=== PATIENT | male | born 1960 | race Caucasian/White ===

== ENCOUNTER → 2023-05-28 10:46 | Outpatient (CLI) | payer MEDICARE, OTHER, SELFPAY | LOC: WC 10:54 | PROVIDERS: Referring Provider Podiatrist; Visit Provider Surgery | DX: E11.621 Type 2 diabetes mellitus with foot ulcer (principal); E11.42 Type 2 diabetes mellitus with diabetic polyneuropathy; L97.526 Non-pressure chronic ulcer of other part of left foot with bone involvement without evidence of necrosis; I96 Gangrene, not elsewhere classified; I73.9 Peripheral vascular disease, unspecified; N18.9 Chronic kidney disease, unspecified; R60.0 Localized edema; L53.9 Erythematous condition, unspecified; I50.9 Heart failure, unspecified; I25.10 Atherosclerotic heart disease of native coronary artery without angina pectoris; Z87.891 Personal history of nicotine dependence | CPT/HCPCS: 11043; 87070; 87075; 87077; 87186; 87205; 99204; 99214 ==

== ENCOUNTER → 2023-06-09 17:24 | Outpatient (CLI) | payer MEDICARE, OTHER, SELFPAY ==
--- NOTE | 2023-06-09 17:28 | DI.RAD.S_ITS ---
PROCEDURE: XR CHEST 2V INDICATIONS: evaluate for HBO treatment TECHNIQUE: 2 views of the chest were acquired. COMPARISON: None. FINDINGS: Surgical changes and devices: None. Lungs and pleura: Lungs are clear. No pleural effusions or pneumothorax. Mediastinum: Mediastinal contours are normal. Heart size is top normal. Bones and chest wall: Degenerative disc disease of the thoracic spine seen on the lateral view. No suspicious bony abnormalities. Soft tissues appear unremarkable. IMPRESSION: No acute cardiopulmonary abnormality is seen. Dictated by: Alfredo English M.D. on 06/10/2023 at 9:01 Approved by: Alfredo English M.D. on 06/10/2023 at 9:04
== END ==
PROVIDERS: PCP Student in an Organized Health Care Education/Training Program; Referring Provider Surgery; Visit Provider Surgery
DX: E11.621 Type 2 diabetes mellitus with foot ulcer (principal); M51.34 Other intervertebral disc degeneration, thoracic region
CPT/HCPCS: 71046

== ENCOUNTER → 2023-06-10 13:05 | Outpatient (CLI) | payer MEDICARE, OTHER, SELFPAY | LOC: WC 13:06 | PROVIDERS: PCP Student in an Organized Health Care Education/Training Program; Referring Provider Podiatrist; Visit Provider Surgery | DX: L97.524 Non-pressure chronic ulcer of other part of left foot with necrosis of bone (principal); I73.9 Peripheral vascular disease, unspecified; E11.621 Type 2 diabetes mellitus with foot ulcer; E11.42 Type 2 diabetes mellitus with diabetic polyneuropathy | CPT/HCPCS: 99183; G0277 ==

== ENCOUNTER → 2023-06-11 13:12 | Outpatient (CLI) | payer MEDICARE, OTHER, SELFPAY | LOC: WC 13:13 | PROVIDERS: PCP Student in an Organized Health Care Education/Training Program; Referring Provider Podiatrist; Visit Provider Surgery | DX: L97.524 Non-pressure chronic ulcer of other part of left foot with necrosis of bone (principal); I73.9 Peripheral vascular disease, unspecified; E11.621 Type 2 diabetes mellitus with foot ulcer; E11.42 Type 2 diabetes mellitus with diabetic polyneuropathy | CPT/HCPCS: 99183; G0277 ==

== ENCOUNTER → 2023-06-12 09:11 | Outpatient (CLI) | payer MEDICARE, OTHER, SELFPAY | LOC: WC 09:13 | PROVIDERS: PCP Student in an Organized Health Care Education/Training Program; Referring Provider Student in an Organized Health Care Education/Training Program; Visit Provider Physician Assistant | DX: L97.524 Non-pressure chronic ulcer of other part of left foot with necrosis of bone (principal); I73.9 Peripheral vascular disease, unspecified; E11.621 Type 2 diabetes mellitus with foot ulcer; E11.42 Type 2 diabetes mellitus with diabetic polyneuropathy | CPT/HCPCS: 99183; G0277 ==

== ENCOUNTER → 2023-06-15 08:53 | Outpatient (CLI) | payer MEDICARE, OTHER, SELFPAY | LOC: WC 06-17 11:15 | PROVIDERS: PCP Student in an Organized Health Care Education/Training Program; Referring Provider Podiatrist; Visit Provider Surgery | DX: L97.524 Non-pressure chronic ulcer of other part of left foot with necrosis of bone (principal); I73.9 Peripheral vascular disease, unspecified; E11.621 Type 2 diabetes mellitus with foot ulcer; E11.42 Type 2 diabetes mellitus with diabetic polyneuropathy | CPT/HCPCS: 99183; G0277 ==

== ENCOUNTER → 2023-06-16 13:35 | Outpatient (CLI) | payer MEDICARE, OTHER, SELFPAY | LOC: WC 13:36 | PROVIDERS: PCP Student in an Organized Health Care Education/Training Program; Referring Provider Podiatrist; Visit Provider Surgery | DX: L97.524 Non-pressure chronic ulcer of other part of left foot with necrosis of bone (principal); I73.9 Peripheral vascular disease, unspecified; E11.621 Type 2 diabetes mellitus with foot ulcer; E11.42 Type 2 diabetes mellitus with diabetic polyneuropathy | CPT/HCPCS: 99183; G0277 ==

== ENCOUNTER → 2023-06-17 09:03 | Outpatient (CLI) | payer MEDICARE, OTHER, SELFPAY | LOC: WC 09:04 | PROVIDERS: PCP Student in an Organized Health Care Education/Training Program; Referring Provider Podiatrist; Visit Provider Surgery | DX: L97.524 Non-pressure chronic ulcer of other part of left foot with necrosis of bone (principal); I73.9 Peripheral vascular disease, unspecified; E11.621 Type 2 diabetes mellitus with foot ulcer; E11.42 Type 2 diabetes mellitus with diabetic polyneuropathy | CPT/HCPCS: 99183; G0277 ==

== ENCOUNTER → 2023-06-18 10:33 | Outpatient (CLI) | payer MEDICARE, OTHER, SELFPAY | LOC: WC 10:34 | PROVIDERS: PCP Student in an Organized Health Care Education/Training Program; Referring Provider Podiatrist; Visit Provider Surgery | DX: L97.524 Non-pressure chronic ulcer of other part of left foot with necrosis of bone (principal); I73.9 Peripheral vascular disease, unspecified; E11.621 Type 2 diabetes mellitus with foot ulcer; E11.42 Type 2 diabetes mellitus with diabetic polyneuropathy | CPT/HCPCS: 99183; G0277 ==

== ENCOUNTER → 2023-06-19 14:18 | Outpatient (CLI) | payer MEDICARE, OTHER, SELFPAY | PROVIDERS: PCP Student in an Organized Health Care Education/Training Program; Referring Provider Podiatrist; Visit Provider Physician Assistant | DX: L97.524 Non-pressure chronic ulcer of other part of left foot with necrosis of bone (principal); I73.9 Peripheral vascular disease, unspecified; E11.621 Type 2 diabetes mellitus with foot ulcer; E11.42 Type 2 diabetes mellitus with diabetic polyneuropathy | CPT/HCPCS: 99183; G0277 ==

== ENCOUNTER → 2023-06-22 11:06 | Outpatient (CLI) | payer MEDICARE, OTHER, SELFPAY | LOC: WC 11:07 | PROVIDERS: PCP Student in an Organized Health Care Education/Training Program; Referring Provider Podiatrist; Visit Provider Surgery | DX: L97.524 Non-pressure chronic ulcer of other part of left foot with necrosis of bone (principal); I73.9 Peripheral vascular disease, unspecified; E11.621 Type 2 diabetes mellitus with foot ulcer; E11.42 Type 2 diabetes mellitus with diabetic polyneuropathy | CPT/HCPCS: 99183; G0277 ==

== ENCOUNTER → 2023-06-23 11:07 | Outpatient (CLI) | payer MEDICARE, OTHER, SELFPAY | LOC: WC 11:08 | PROVIDERS: PCP Student in an Organized Health Care Education/Training Program; Referring Provider Podiatrist; Visit Provider Surgery | DX: L97.524 Non-pressure chronic ulcer of other part of left foot with necrosis of bone (principal); I73.9 Peripheral vascular disease, unspecified; E11.621 Type 2 diabetes mellitus with foot ulcer; E11.42 Type 2 diabetes mellitus with diabetic polyneuropathy | CPT/HCPCS: 99183; G0277 ==

== ENCOUNTER → 2023-06-24 10:48 | Outpatient (CLI) | payer MEDICARE, OTHER, SELFPAY | LOC: WC 10:49 | PROVIDERS: PCP Student in an Organized Health Care Education/Training Program; Referring Provider Podiatrist; Visit Provider Surgery | DX: L97.524 Non-pressure chronic ulcer of other part of left foot with necrosis of bone (principal); I73.9 Peripheral vascular disease, unspecified; E11.621 Type 2 diabetes mellitus with foot ulcer; E11.42 Type 2 diabetes mellitus with diabetic polyneuropathy | CPT/HCPCS: 99183; G0277 ==

== ENCOUNTER → 2023-06-25 14:13 | Outpatient (CLI) | payer MEDICARE, OTHER, SELFPAY | LOC: WC 14:14 | PROVIDERS: PCP Student in an Organized Health Care Education/Training Program; Referring Provider Podiatrist; Visit Provider Surgery | DX: L97.524 Non-pressure chronic ulcer of other part of left foot with necrosis of bone (principal); I73.9 Peripheral vascular disease, unspecified; E11.621 Type 2 diabetes mellitus with foot ulcer; E11.42 Type 2 diabetes mellitus with diabetic polyneuropathy | CPT/HCPCS: 99183; G0277 ==

== ENCOUNTER → 2023-06-29 07:56 | Outpatient (CLI) | payer MEDICARE, OTHER, SELFPAY ==
--- NOTE | 2023-06-29 07:58 | DI.US.S_ITS ---
PROCEDURE: US CAROTID DOPPLER BI INDICATIONS: RIGHT CENTRAL RETINAL ARTERY OCCLUSION TECHNIQUE: Color and pulse Doppler interrogation was performed of both carotid systems, with image documentation and velocity measurements. COMPARISON: None. FINDINGS: Stenosis calculations are based on SRU (S[employer] in Ultras[employer]) criteria. Right side: Brachial blood pressure: 155/95 mm Hg. Common carotid artery peak systolic velocity: 41 cm/sec. Internal carotid artery peak systolic velocity: 42 cm/sec. Internal carotid artery end diastolic velocity: 21 cm/sec. External carotid artery peak systolic velocity: 47 cm/sec. ICA/CCA peak systolic ratio: 1.0. Rain scale imaging description: Mild calcified plaque. Percent internal carotid artery stenosis: Less than 50% stenosis. Vertebral artery: Flow direction is antegrade. Left side: Brachial blood pressure: 158/101 mm Hg. Common carotid artery peak systolic velocity: 63 cm/sec. Internal carotid artery peak systolic velocity: 44 cm/sec. Internal carotid artery end diastolic velocity: 19 cm/sec. External carotid artery peak systolic velocity: 49 cm/sec. ICA/CCA peak systolic ratio: 0.7. Rain scale imaging description: Mild calcified plaque. Percent internal carotid artery stenosis: Less than 50% stenosis. Vertebral artery: Flow direction is antegrade. IMPRESSION: 1. Right ICA: Less than 50 % stenosis. 2. Left ICA: Less than 50 % stenosis. 3. Antegrade flow in the bilateral vertebral arteries. Dictated by: Rudy Morris M.D. on 06/29/2023 at 8:58 Approved by: Rudy Morris M.D. on 06/29/2023 at 9:02
== END ==
PROVIDERS: PCP Student in an Organized Health Care Education/Training Program; Referring Provider Ophthalmology; Visit Provider Ophthalmology
DX: H34.11 Central retinal artery occlusion, right eye (principal); I65.23 Occlusion and stenosis of bilateral carotid arteries
CPT/HCPCS: 93880; G0277

== ENCOUNTER → 2023-06-29 09:32 | Outpatient (CLI) | payer MEDICARE, OTHER, SELFPAY | PROVIDERS: PCP Student in an Organized Health Care Education/Training Program; Referring Provider Student in an Organized Health Care Education/Training Program; Visit Provider Surgery | DX: L97.524 Non-pressure chronic ulcer of other part of left foot with necrosis of bone (principal); I73.9 Peripheral vascular disease, unspecified; E11.621 Type 2 diabetes mellitus with foot ulcer; E11.42 Type 2 diabetes mellitus with diabetic polyneuropathy | CPT/HCPCS: 99183; G0277 ==

== ENCOUNTER → 2023-06-30 11:28 | Outpatient (CLI) | payer MEDICARE, OTHER, SELFPAY | LOC: WC 11:29 | PROVIDERS: PCP Student in an Organized Health Care Education/Training Program; Referring Provider Podiatrist; Visit Provider Surgery | DX: L97.524 Non-pressure chronic ulcer of other part of left foot with necrosis of bone (principal); I73.9 Peripheral vascular disease, unspecified; E11.621 Type 2 diabetes mellitus with foot ulcer; E11.42 Type 2 diabetes mellitus with diabetic polyneuropathy | CPT/HCPCS: 99183; G0277 ==

== ENCOUNTER → 2023-07-01 10:46 | Outpatient (CLI) | payer MEDICARE, OTHER, SELFPAY | LOC: WC 10:47 | PROVIDERS: PCP Student in an Organized Health Care Education/Training Program; Referring Provider Podiatrist; Visit Provider Surgery | DX: L97.524 Non-pressure chronic ulcer of other part of left foot with necrosis of bone (principal); I73.9 Peripheral vascular disease, unspecified; E11.621 Type 2 diabetes mellitus with foot ulcer; E11.42 Type 2 diabetes mellitus with diabetic polyneuropathy; L97.526 Non-pressure chronic ulcer of other part of left foot with bone involvement without evidence of necrosis; I96 Gangrene, not elsewhere classified; R60.0 Localized edema; L53.9 Erythematous condition, unspecified; I50.9 Heart failure, unspecified; I25.10 Atherosclerotic heart disease of native coronary artery without angina pectoris; N18.9 Chronic kidney disease, unspecified | CPT/HCPCS: 11042; 99183; 99213; G0277 ==

== ENCOUNTER → 2023-07-02 13:02 | Outpatient (CLI) | payer MEDICARE, OTHER, SELFPAY | PROVIDERS: PCP Student in an Organized Health Care Education/Training Program; Referring Provider Podiatrist; Visit Provider Surgery | DX: L97.524 Non-pressure chronic ulcer of other part of left foot with necrosis of bone (principal); I73.9 Peripheral vascular disease, unspecified; E11.621 Type 2 diabetes mellitus with foot ulcer; E11.42 Type 2 diabetes mellitus with diabetic polyneuropathy | CPT/HCPCS: 99183; G0277 ==

== ENCOUNTER → 2023-07-03 13:19 | Outpatient (CLI) | payer MEDICARE, OTHER, SELFPAY | PROVIDERS: PCP Student in an Organized Health Care Education/Training Program; Referring Provider Podiatrist; Visit Provider Physician Assistant | DX: L97.524 Non-pressure chronic ulcer of other part of left foot with necrosis of bone (principal); I73.9 Peripheral vascular disease, unspecified; E11.621 Type 2 diabetes mellitus with foot ulcer; E11.42 Type 2 diabetes mellitus with diabetic polyneuropathy | CPT/HCPCS: 99183; G0277 ==

== ENCOUNTER → 2023-07-06 14:20 | Outpatient (CLI) | payer MEDICARE, OTHER, SELFPAY | PROVIDERS: PCP Student in an Organized Health Care Education/Training Program; Referring Provider Podiatrist; Visit Provider Surgery | DX: L97.524 Non-pressure chronic ulcer of other part of left foot with necrosis of bone (principal); I73.9 Peripheral vascular disease, unspecified; E11.621 Type 2 diabetes mellitus with foot ulcer; E11.42 Type 2 diabetes mellitus with diabetic polyneuropathy | CPT/HCPCS: 99183; G0277 ==

== ENCOUNTER → 2023-07-07 09:38 | Outpatient (CLI) | payer MEDICARE, OTHER, SELFPAY | PROVIDERS: PCP Student in an Organized Health Care Education/Training Program; Referring Provider Podiatrist; Visit Provider Surgery | DX: L97.524 Non-pressure chronic ulcer of other part of left foot with necrosis of bone (principal); I73.9 Peripheral vascular disease, unspecified; E11.621 Type 2 diabetes mellitus with foot ulcer; E11.42 Type 2 diabetes mellitus with diabetic polyneuropathy | CPT/HCPCS: 99183; G0277 ==

== ENCOUNTER → 2023-07-08 11:45 | Outpatient (CLI) | payer MEDICARE, OTHER, SELFPAY | LOC: WC 11:45 | PROVIDERS: PCP Student in an Organized Health Care Education/Training Program; Referring Provider Podiatrist; Visit Provider Surgery | DX: L97.524 Non-pressure chronic ulcer of other part of left foot with necrosis of bone (principal); I73.9 Peripheral vascular disease, unspecified; E11.621 Type 2 diabetes mellitus with foot ulcer; E11.42 Type 2 diabetes mellitus with diabetic polyneuropathy | CPT/HCPCS: 99183; G0277 ==

== ENCOUNTER → 2023-07-09 15:11 | Outpatient (CLI) | payer MEDICARE, OTHER, SELFPAY | LOC: WC 15:12 | PROVIDERS: PCP Student in an Organized Health Care Education/Training Program; Referring Provider Podiatrist; Visit Provider Surgery | DX: L97.524 Non-pressure chronic ulcer of other part of left foot with necrosis of bone (principal); I73.9 Peripheral vascular disease, unspecified; E11.621 Type 2 diabetes mellitus with foot ulcer; E11.42 Type 2 diabetes mellitus with diabetic polyneuropathy | CPT/HCPCS: 99183; G0277 ==

== ENCOUNTER → 2023-07-10 11:48 | Outpatient (CLI) | payer MEDICARE, OTHER, SELFPAY | LOC: WC 11:49 | PROVIDERS: PCP Student in an Organized Health Care Education/Training Program; Referring Provider Podiatrist; Visit Provider Physician Assistant | DX: L97.524 Non-pressure chronic ulcer of other part of left foot with necrosis of bone (principal); I73.9 Peripheral vascular disease, unspecified; E11.621 Type 2 diabetes mellitus with foot ulcer; E11.42 Type 2 diabetes mellitus with diabetic polyneuropathy | CPT/HCPCS: 99183; G0277 ==

== ENCOUNTER → 2023-07-13 15:06 | Outpatient (CLI) | payer MEDICARE, OTHER, SELFPAY | LOC: WC 15:12 | PROVIDERS: PCP Student in an Organized Health Care Education/Training Program; Referring Provider Podiatrist; Visit Provider Surgery | DX: L97.524 Non-pressure chronic ulcer of other part of left foot with necrosis of bone (principal); I73.9 Peripheral vascular disease, unspecified; E11.621 Type 2 diabetes mellitus with foot ulcer; E11.42 Type 2 diabetes mellitus with diabetic polyneuropathy | CPT/HCPCS: 99183; G0277 ==

== ENCOUNTER → 2023-07-14 07:55 | Outpatient (CLI) | payer MEDICARE, OTHER, SELFPAY ==
--- NOTE | 2023-07-14 07:57 | DI.US.S_ITS ---
PROCEDURE: US ABDOMEN COMPLETE INDICATIONS: SPLENOMEGALY TECHNIQUE: Real-time scanning was performed of the abdominal and retroperitoneal organs, with image documentation. COMPARISON: None. FINDINGS: Evaluation is limited secondary to patient body habitus/bowel gas. Liver: Liver is normal in size and homogeneous in echotexture. Gallbladder: No gallstones identified. Normal gallbladder wall. No pericholecystic fluid. Negative sonographic Mcnamara sign. Biliary ducts: Intrahepatic bile ducts are non-dilated. Extrahepatic bile duct caliber measures 2 mm. Normal is 6-7 mm or less in diameter, or 10 mm or less post-cholecystectomy. Pancreas: Not well seen secondary to bowel gas. Spleen: Spleen is normal in size and homogeneous in echotexture. Kidneys: Kidneys are normal in size and echotexture. Right kidney measures 10.3 cm long; left kidney measures 11.3 cm long. No hydronephrosis or nephrolithiasis. No solid masses. Aorta: Proximal abdominal aorta measures 2.3 cm. Mid and distal abdominal aorta are not visualized. Iliacs: Not visualized. IVC: Intrahepatic inferior vena cava is patent. Miscellaneous: No free abdominal fluid. IMPRESSION: Evaluation is limited secondary to patient body habitus/bowel gas. Spleen is normal in size measuring 8.9 cm with homogeneous echotexture. Dictated by: Mo Ramirez M.D. on 07/14/2023 at 8:56 Approved by: Mo Ramirez M.D. on 07/14/2023 at 9:14
== END ==
PROVIDERS: PCP Student in an Organized Health Care Education/Training Program; Referring Provider Specialist; Visit Provider Specialist
DX: R16.1 Splenomegaly, not elsewhere classified (principal); Z90.49 Acquired absence of other specified parts of digestive tract
CPT/HCPCS: 76700

== ENCOUNTER → 2023-07-14 13:21 | Outpatient (CLI) | payer MEDICARE, OTHER, SELFPAY | PROVIDERS: PCP Student in an Organized Health Care Education/Training Program; Referring Provider Podiatrist; Visit Provider Surgery | DX: L97.524 Non-pressure chronic ulcer of other part of left foot with necrosis of bone (principal); I73.9 Peripheral vascular disease, unspecified; E11.621 Type 2 diabetes mellitus with foot ulcer; E11.42 Type 2 diabetes mellitus with diabetic polyneuropathy | CPT/HCPCS: 99183; G0277 ==

== ENCOUNTER → 2023-07-15 11:41 | Outpatient (CLI) | payer MEDICARE, OTHER, SELFPAY | LOC: WC 11:42 | PROVIDERS: PCP Student in an Organized Health Care Education/Training Program; Referring Provider Podiatrist; Visit Provider Surgery | DX: L97.524 Non-pressure chronic ulcer of other part of left foot with necrosis of bone (principal); I73.9 Peripheral vascular disease, unspecified; E11.621 Type 2 diabetes mellitus with foot ulcer; E11.42 Type 2 diabetes mellitus with diabetic polyneuropathy | CPT/HCPCS: 99183; G0277 ==

== ENCOUNTER → 2023-07-16 11:13 | Outpatient (CLI) | payer MEDICARE, OTHER, SELFPAY | LOC: WC 11:14 | PROVIDERS: PCP Student in an Organized Health Care Education/Training Program; Referring Provider Podiatrist; Visit Provider Surgery | DX: L97.524 Non-pressure chronic ulcer of other part of left foot with necrosis of bone (principal); I73.9 Peripheral vascular disease, unspecified; E11.621 Type 2 diabetes mellitus with foot ulcer; E11.42 Type 2 diabetes mellitus with diabetic polyneuropathy | CPT/HCPCS: 99183; G0277 ==

== ENCOUNTER → 2023-07-17 11:26 | Outpatient (CLI) | payer MEDICARE, OTHER, SELFPAY | LOC: WC 11:27 | PROVIDERS: PCP Student in an Organized Health Care Education/Training Program; Referring Provider Podiatrist; Visit Provider Surgery | DX: L97.524 Non-pressure chronic ulcer of other part of left foot with necrosis of bone (principal); I73.9 Peripheral vascular disease, unspecified; E11.621 Type 2 diabetes mellitus with foot ulcer; E11.42 Type 2 diabetes mellitus with diabetic polyneuropathy | CPT/HCPCS: 99183; G0277 ==

== ENCOUNTER → 2023-07-20 12:51 | Outpatient (CLI) | payer MEDICARE, OTHER, SELFPAY | LOC: WC 12:52 | PROVIDERS: PCP Student in an Organized Health Care Education/Training Program; Referring Provider Podiatrist; Visit Provider Surgery | DX: L97.524 Non-pressure chronic ulcer of other part of left foot with necrosis of bone (principal); I73.9 Peripheral vascular disease, unspecified; E11.621 Type 2 diabetes mellitus with foot ulcer; E11.42 Type 2 diabetes mellitus with diabetic polyneuropathy | CPT/HCPCS: 99183; G0277 ==

== ENCOUNTER → 2023-07-21 13:58 | Outpatient (CLI) | payer MEDICARE, OTHER, SELFPAY | LOC: WC 13:59 | PROVIDERS: PCP Student in an Organized Health Care Education/Training Program; Referring Provider Podiatrist; Visit Provider Surgery | DX: L97.524 Non-pressure chronic ulcer of other part of left foot with necrosis of bone (principal); I73.9 Peripheral vascular disease, unspecified; E11.621 Type 2 diabetes mellitus with foot ulcer; E11.42 Type 2 diabetes mellitus with diabetic polyneuropathy | CPT/HCPCS: 99183; G0277 ==

== ENCOUNTER → 2023-07-22 13:14 | Outpatient (CLI) | payer MEDICARE, OTHER, SELFPAY | LOC: WC 13:16 | PROVIDERS: PCP Student in an Organized Health Care Education/Training Program; Referring Provider Podiatrist; Visit Provider Surgery | DX: L97.524 Non-pressure chronic ulcer of other part of left foot with necrosis of bone (principal); I73.9 Peripheral vascular disease, unspecified; E11.621 Type 2 diabetes mellitus with foot ulcer; E11.42 Type 2 diabetes mellitus with diabetic polyneuropathy | CPT/HCPCS: 99183; G0277 ==

== ENCOUNTER → 2023-07-23 14:15 | Outpatient (CLI) | payer MEDICARE, OTHER, SELFPAY | LOC: WC 14:18 | PROVIDERS: PCP Student in an Organized Health Care Education/Training Program; Referring Provider Student in an Organized Health Care Education/Training Program; Visit Provider Surgery | DX: L97.524 Non-pressure chronic ulcer of other part of left foot with necrosis of bone (principal); I73.9 Peripheral vascular disease, unspecified; E11.621 Type 2 diabetes mellitus with foot ulcer; E11.42 Type 2 diabetes mellitus with diabetic polyneuropathy | CPT/HCPCS: 99183; G0277 ==

== ENCOUNTER → 2023-07-24 12:36 | Outpatient (CLI) | payer MEDICARE, OTHER, SELFPAY | LOC: WC 12:45 | PROVIDERS: PCP Student in an Organized Health Care Education/Training Program; Referring Provider Podiatrist; Visit Provider Physician Assistant | DX: L97.524 Non-pressure chronic ulcer of other part of left foot with necrosis of bone (principal); I73.9 Peripheral vascular disease, unspecified; E11.621 Type 2 diabetes mellitus with foot ulcer; E11.42 Type 2 diabetes mellitus with diabetic polyneuropathy | CPT/HCPCS: 99183; G0277 ==

== ENCOUNTER → 2023-07-27 14:31 | Outpatient (CLI) | payer MEDICARE, OTHER, SELFPAY | LOC: WC 14:33 | PROVIDERS: PCP Student in an Organized Health Care Education/Training Program; Referring Provider Podiatrist; Visit Provider Surgery | DX: L97.524 Non-pressure chronic ulcer of other part of left foot with necrosis of bone (principal); I73.9 Peripheral vascular disease, unspecified; E11.621 Type 2 diabetes mellitus with foot ulcer; E11.42 Type 2 diabetes mellitus with diabetic polyneuropathy | CPT/HCPCS: 99183; G0277 ==

== ENCOUNTER → 2023-07-28 14:14 | Outpatient (CLI) | payer MEDICARE, OTHER, SELFPAY | LOC: WC 14:15 | PROVIDERS: PCP Student in an Organized Health Care Education/Training Program; Referring Provider Podiatrist; Visit Provider Surgery | DX: L97.524 Non-pressure chronic ulcer of other part of left foot with necrosis of bone (principal); I73.9 Peripheral vascular disease, unspecified; E11.621 Type 2 diabetes mellitus with foot ulcer; E11.42 Type 2 diabetes mellitus with diabetic polyneuropathy | CPT/HCPCS: 99183; G0277 ==

== ENCOUNTER → 2023-07-29 15:22 | Outpatient (CLI) | payer MEDICARE, OTHER, SELFPAY | PROVIDERS: PCP Student in an Organized Health Care Education/Training Program; Referring Provider Podiatrist; Visit Provider Surgery | DX: L97.524 Non-pressure chronic ulcer of other part of left foot with necrosis of bone (principal); I73.9 Peripheral vascular disease, unspecified; E11.621 Type 2 diabetes mellitus with foot ulcer; E11.42 Type 2 diabetes mellitus with diabetic polyneuropathy | CPT/HCPCS: 99183; G0277 ==

== ENCOUNTER → 2023-07-30 15:22 | Outpatient (CLI) | payer MEDICARE, OTHER, SELFPAY | PROVIDERS: PCP Student in an Organized Health Care Education/Training Program; Referring Provider Podiatrist; Visit Provider Surgery | DX: H10.31 Unspecified acute conjunctivitis, right eye (principal); L97.524 Non-pressure chronic ulcer of other part of left foot with necrosis of bone; E11.621 Type 2 diabetes mellitus with foot ulcer | CPT/HCPCS: 99211; 99213 ==

== ENCOUNTER → 2023-08-04 12:58 | Outpatient (CLI) | payer MEDICARE, OTHER, SELFPAY | PROVIDERS: PCP Student in an Organized Health Care Education/Training Program; Referring Provider Podiatrist; Visit Provider Physician Assistant | DX: L97.524 Non-pressure chronic ulcer of other part of left foot with necrosis of bone (principal); I73.9 Peripheral vascular disease, unspecified; E11.621 Type 2 diabetes mellitus with foot ulcer; E11.42 Type 2 diabetes mellitus with diabetic polyneuropathy | CPT/HCPCS: 99183; G0277 ==

== ENCOUNTER → 2023-08-05 09:55 | Outpatient (CLI) | payer MEDICARE, OTHER, SELFPAY | PROVIDERS: PCP Student in an Organized Health Care Education/Training Program; Referring Provider Podiatrist; Visit Provider Surgery | DX: L97.524 Non-pressure chronic ulcer of other part of left foot with necrosis of bone (principal); I73.9 Peripheral vascular disease, unspecified; E11.621 Type 2 diabetes mellitus with foot ulcer; E11.42 Type 2 diabetes mellitus with diabetic polyneuropathy | CPT/HCPCS: 99183; 99213; G0277 ==

== ENCOUNTER → 2023-08-06 10:58 | Outpatient (CLI) | payer MEDICARE, OTHER, SELFPAY | LOC: WC 10:59 | PROVIDERS: PCP Student in an Organized Health Care Education/Training Program; Referring Provider Podiatrist; Visit Provider Surgery | DX: L97.524 Non-pressure chronic ulcer of other part of left foot with necrosis of bone (principal); I73.9 Peripheral vascular disease, unspecified; E11.621 Type 2 diabetes mellitus with foot ulcer; E11.42 Type 2 diabetes mellitus with diabetic polyneuropathy | CPT/HCPCS: 99183; G0277 ==

== ENCOUNTER → 2023-08-10 11:07 | Outpatient (CLI) | payer MEDICARE, OTHER, SELFPAY | LOC: WC 11:09 | PROVIDERS: PCP Student in an Organized Health Care Education/Training Program; Referring Provider Podiatrist; Visit Provider Surgery | DX: L97.524 Non-pressure chronic ulcer of other part of left foot with necrosis of bone (principal); I73.9 Peripheral vascular disease, unspecified; E11.621 Type 2 diabetes mellitus with foot ulcer; E11.42 Type 2 diabetes mellitus with diabetic polyneuropathy | CPT/HCPCS: 99183; G0277 ==

== ENCOUNTER → 2023-08-11 10:40 | Outpatient (CLI) | payer MEDICARE, OTHER, SELFPAY | LOC: WC 10:41 | PROVIDERS: PCP Student in an Organized Health Care Education/Training Program; Referring Provider Podiatrist; Visit Provider Surgery | DX: L97.524 Non-pressure chronic ulcer of other part of left foot with necrosis of bone (principal); I73.9 Peripheral vascular disease, unspecified; E11.621 Type 2 diabetes mellitus with foot ulcer; E11.42 Type 2 diabetes mellitus with diabetic polyneuropathy | CPT/HCPCS: 99183; G0277 ==

== ENCOUNTER → 2023-08-13 11:00 | Outpatient (CLI) | payer MEDICARE, OTHER, SELFPAY | LOC: WC 11:01 | PROVIDERS: PCP Student in an Organized Health Care Education/Training Program; Referring Provider Podiatrist; Visit Provider Surgery | DX: L97.524 Non-pressure chronic ulcer of other part of left foot with necrosis of bone (principal); I73.9 Peripheral vascular disease, unspecified; E11.621 Type 2 diabetes mellitus with foot ulcer; E11.42 Type 2 diabetes mellitus with diabetic polyneuropathy | CPT/HCPCS: 99183; G0277 ==

== ENCOUNTER → 2023-08-17 11:24 | Outpatient (CLI) | payer MEDICARE, OTHER, SELFPAY | LOC: WC 11:26 | PROVIDERS: PCP Student in an Organized Health Care Education/Training Program; Referring Provider Podiatrist; Visit Provider Surgery | DX: L97.524 Non-pressure chronic ulcer of other part of left foot with necrosis of bone (principal); E11.621 Type 2 diabetes mellitus with foot ulcer; I73.9 Peripheral vascular disease, unspecified; E11.42 Type 2 diabetes mellitus with diabetic polyneuropathy | CPT/HCPCS: 99183; G0277 ==

== ENCOUNTER → 2023-08-19 11:13 | Outpatient (CLI) | payer MEDICARE, OTHER, SELFPAY | PROVIDERS: PCP Student in an Organized Health Care Education/Training Program; Referring Provider Podiatrist; Visit Provider Physician Assistant | DX: L97.524 Non-pressure chronic ulcer of other part of left foot with necrosis of bone (principal); I73.9 Peripheral vascular disease, unspecified; E11.621 Type 2 diabetes mellitus with foot ulcer; E11.42 Type 2 diabetes mellitus with diabetic polyneuropathy | CPT/HCPCS: 99183; G0277 ==

== ENCOUNTER → 2023-08-25 11:45 | Outpatient (CLI) | payer MEDICARE, OTHER, SELFPAY | LOC: WC 11:46 | PROVIDERS: PCP Student in an Organized Health Care Education/Training Program; Referring Provider Podiatrist; Visit Provider Surgery | DX: L97.524 Non-pressure chronic ulcer of other part of left foot with necrosis of bone (principal); I73.9 Peripheral vascular disease, unspecified; E11.621 Type 2 diabetes mellitus with foot ulcer; E11.42 Type 2 diabetes mellitus with diabetic polyneuropathy | CPT/HCPCS: 99183; G0277 ==

== ENCOUNTER → 2023-08-27 11:16 | Outpatient (CLI) | payer MEDICARE, OTHER, SELFPAY | PROVIDERS: PCP Student in an Organized Health Care Education/Training Program; Referring Provider Podiatrist; Visit Provider Surgery | DX: L97.524 Non-pressure chronic ulcer of other part of left foot with necrosis of bone (principal); I73.9 Peripheral vascular disease, unspecified; E11.621 Type 2 diabetes mellitus with foot ulcer; E11.42 Type 2 diabetes mellitus with diabetic polyneuropathy | CPT/HCPCS: 99183; G0277 ==

== ENCOUNTER → 2023-08-31 11:31 | Outpatient (CLI) | payer MEDICARE, OTHER, SELFPAY | PROVIDERS: PCP Student in an Organized Health Care Education/Training Program; Referring Provider Podiatrist; Visit Provider Surgery | DX: L97.524 Non-pressure chronic ulcer of other part of left foot with necrosis of bone (principal); I73.9 Peripheral vascular disease, unspecified; E11.621 Type 2 diabetes mellitus with foot ulcer; E11.42 Type 2 diabetes mellitus with diabetic polyneuropathy | CPT/HCPCS: 99183; G0277 ==

== ENCOUNTER → 2023-09-02 08:56 | Outpatient (CLI) | payer MEDICARE, OTHER, SELFPAY | LOC: WC 08:57 | PROVIDERS: PCP Student in an Organized Health Care Education/Training Program; Referring Provider Podiatrist; Visit Provider Surgery | DX: L97.524 Non-pressure chronic ulcer of other part of left foot with necrosis of bone (principal); I73.9 Peripheral vascular disease, unspecified; E11.621 Type 2 diabetes mellitus with foot ulcer; E11.42 Type 2 diabetes mellitus with diabetic polyneuropathy | CPT/HCPCS: 99183; G0277 ==

== ENCOUNTER → 2023-09-03 11:49 | Outpatient (CLI) | payer MEDICARE, OTHER, SELFPAY | LOC: WC 11:50 | PROVIDERS: PCP Student in an Organized Health Care Education/Training Program; Referring Provider Podiatrist; Visit Provider Surgery | DX: L97.524 Non-pressure chronic ulcer of other part of left foot with necrosis of bone (principal); I73.9 Peripheral vascular disease, unspecified; E11.621 Type 2 diabetes mellitus with foot ulcer; E11.42 Type 2 diabetes mellitus with diabetic polyneuropathy | CPT/HCPCS: 99183; G0277 ==

== ENCOUNTER → 2023-09-07 13:45 | Outpatient (CLI) | payer MEDICARE, OTHER, SELFPAY | LOC: WC 13:46 | PROVIDERS: PCP Student in an Organized Health Care Education/Training Program; Referring Provider Podiatrist; Visit Provider Surgery | DX: E11.621 Type 2 diabetes mellitus with foot ulcer (principal); E11.42 Type 2 diabetes mellitus with diabetic polyneuropathy; L84 Corns and callosities; R60.0 Localized edema; I73.9 Peripheral vascular disease, unspecified; I25.10 Atherosclerotic heart disease of native coronary artery without angina pectoris; L97.524 Non-pressure chronic ulcer of other part of left foot with necrosis of bone | CPT/HCPCS: 99183; G0277 ==

== ENCOUNTER → 2023-09-14 14:46 | Outpatient (CLI) | payer MEDICARE, OTHER, SELFPAY | PROVIDERS: PCP Student in an Organized Health Care Education/Training Program; Referring Provider Student in an Organized Health Care Education/Training Program; Visit Provider Surgery | DX: E11.621 Type 2 diabetes mellitus with foot ulcer (principal); E11.42 Type 2 diabetes mellitus with diabetic polyneuropathy; L97.524 Non-pressure chronic ulcer of other part of left foot with necrosis of bone; I73.9 Peripheral vascular disease, unspecified | CPT/HCPCS: 99183; G0277 ==

== ENCOUNTER → 2023-09-15 10:50 | Outpatient (CLI) | payer MEDICARE, OTHER, SELFPAY | PROVIDERS: PCP Student in an Organized Health Care Education/Training Program; Referring Provider Student in an Organized Health Care Education/Training Program; Visit Provider Surgery | DX: L97.524 Non-pressure chronic ulcer of other part of left foot with necrosis of bone (principal); I73.9 Peripheral vascular disease, unspecified; E11.621 Type 2 diabetes mellitus with foot ulcer; E11.42 Type 2 diabetes mellitus with diabetic polyneuropathy | CPT/HCPCS: 99183; G0277 ==

== ENCOUNTER → 2023-09-22 11:22 | Outpatient (CLI) | payer MEDICARE, OTHER, SELFPAY | PROVIDERS: PCP Student in an Organized Health Care Education/Training Program; Referring Provider Podiatrist; Visit Provider Surgery | DX: L97.524 Non-pressure chronic ulcer of other part of left foot with necrosis of bone (principal); I73.9 Peripheral vascular disease, unspecified; E11.621 Type 2 diabetes mellitus with foot ulcer; E11.42 Type 2 diabetes mellitus with diabetic polyneuropathy | CPT/HCPCS: 99183; G0277 ==

== ENCOUNTER → 2023-09-29 10:46 | Outpatient (CLI) | payer MEDICARE, OTHER, SELFPAY | LOC: WC 10:47 | PROVIDERS: PCP Student in an Organized Health Care Education/Training Program; Referring Provider Podiatrist; Visit Provider Surgery | DX: L97.524 Non-pressure chronic ulcer of other part of left foot with necrosis of bone (principal); I73.9 Peripheral vascular disease, unspecified; E11.621 Type 2 diabetes mellitus with foot ulcer; E11.42 Type 2 diabetes mellitus with diabetic polyneuropathy | CPT/HCPCS: 99183; G0277 ==

== ENCOUNTER → 2023-09-30 11:03 | Outpatient (CLI) | payer MEDICARE, OTHER, SELFPAY | LOC: WC 11:04 | PROVIDERS: PCP Student in an Organized Health Care Education/Training Program; Referring Provider Podiatrist; Visit Provider Surgery | DX: L97.524 Non-pressure chronic ulcer of other part of left foot with necrosis of bone (principal); I73.9 Peripheral vascular disease, unspecified; E11.621 Type 2 diabetes mellitus with foot ulcer; E11.42 Type 2 diabetes mellitus with diabetic polyneuropathy | CPT/HCPCS: 99183; G0277 ==

== ENCOUNTER → 2023-10-02 13:19 | Outpatient (CLI) | payer MEDICARE, OTHER, SELFPAY | LOC: WC 13:20 | PROVIDERS: PCP Student in an Organized Health Care Education/Training Program; Referring Provider Podiatrist; Visit Provider Physician Assistant | DX: L97.524 Non-pressure chronic ulcer of other part of left foot with necrosis of bone (principal); I73.9 Peripheral vascular disease, unspecified; E11.621 Type 2 diabetes mellitus with foot ulcer; E11.42 Type 2 diabetes mellitus with diabetic polyneuropathy | CPT/HCPCS: 99183; G0277 ==